=== PATIENT | male | born 1965 | race Two or more races ===

== ENCOUNTER 2017-01-31 21:42 | Emergency (ER) | payer SELFPAY ==
[~2017-01-31] VITALS: Ht 160 cm; Wt 66.0 kg
[2017-01-31 21:58] VITALS: BP 138/70
== END 2017-02-01 01:54 | disposition left against medical advice (07) ==
LOC: ER 21:42
DX: F10.10 Alcohol abuse, uncomplicated (principal); Z53.21 Procedure and treatment not carried out due to patient leaving prior to being seen by health care provider